=== PATIENT | female | born 1965 | race Caucasian/White ===

== ENCOUNTER 2019-10-12 21:18 | Emergency (ER) | payer OTHER ==
[~2019-10-12] VITALS: Wt 93.4 kg
== END 2019-10-13 01:28 | disposition home or self-care (01) ==
LOC: ED 21:18
DX: S86.911A Strain of unspecified muscle(s) and tendon(s) at lower leg level, right leg, initial encounter (principal); F17.200 Nicotine dependence, unspecified, uncomplicated; W01.0XXA Fall on same level from slipping, tripping and stumbling without subsequent striking against object, initial encounter; Y93.89 Activity, other specified; Y92.480 Sidewalk as the place of occurrence of the external cause; Y99.8 Other external cause status